=== PATIENT | female | born 2005 | race Caucasian/White ===

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

== ENCOUNTER 2024-01-04 16:49 | Outpatient (CLI) | payer MEDICAID, SELFPAY ==
[2024-01-04 17:26] VITALS: BP 106/55; PULSE 92
[2024-01-04 17:29] VITALS: BMI 28.0
[2024-01-04 17:37] VITALS: RESP 16; TEMP 36.2
--- NOTE | 2024-01-04 18:45 | OB.TRI.NOTE ---
HPI - General HPI Narrative JOHNATHAN NEAL, is a at 38.2 weeks gestation old who presents with contractions that started earlier today. Denies any leaking of fluid or vaginal bleeding. Positive movement. Maternal Data Information AARON Calculator Estimated Delivery Date Method Current WG Current Estimate 01/16/24 Manual 38w 2d [facility] Medical History (Updated 01/04/24 @ 18:54 by Bethany Espinosa CNM) Spontaneous vaginal delivery Home Medications ?Medication ?Instructions ?Recorded ?Last Taken ?Type [id number]-[id number]-Ev-FA 1 mg 1 tab PO DAILY 09/01/21 12/12/23 09:00 History tablet 1 TAB Allergy/AdvReac Type Severity Reaction Status Date / Time No Known Allergies Allergy Verified 01/04/24 17:29 Social History Smoking Status: Never smoker History Elective abortions Hx Para 0 Spontaneous abortions Hx # Term Pregnancies Ectopic pregnancies Hx # Pregnancies Multiple births # of living children ROS Eyes Eyes: Denies blurry vision Cardiovascular Cardiovascular: Reports none; Denies chest pain at rest, chest pain with activity or dizziness Respiratory/Chest Respiratory/Chest: Denies cough or dyspnea Gastrointestinal Gastrointestinal: Reports none and other; Denies diarrhea or vomiting Genitourinary Genitourinary: Denies dysuria Musculoskeletal Musculoskeletal: Reports none Integumentary Integumentary: Reports none; Denies rash Neurologic Neurologic: Denies dizziness, headache(s) or other visual disturbances Psychiatric Psychiatric: Reports none Physical Exam Const alert and no apparent distress General Appearance: cooperative Orientation / Consciousness: awake Exam Limitations: no limitations HEENT normocephalic Eyes General Eye: normal appearance of both eyes Neck full ROM Chest inspection of chest normal Resp normal respiratory effort and normal air movement Effort and Inspection: symmetric chest movement Auscultation: clear to auscultation bilaterally Cardio regular rate GI soft to palpation, non-tender and non-distended Inspection: and other Back/Spine normal ROM Extremity full ROM, normal capillary refill and no calf tenderness Skin no rashes or lesions noted Neuro oriented x3 and CN's II-XII intact bilaterally Psych mental status grossly normal NST FHR Rate Baby A Baseline: 130 Variability:: Moderate Accelerations:: 15 x 15 Decelerations:: None NST Reactive:: Yes FHR Category:: Category I Uterine Activity:: irregular Assessment & Plan (1) 38 weeks gestation of : (2) Uterine contractions: PLAN: Plan NST reactive CE - unchanged after monitoring- 2.5/-3 Patient requesting to be discharged home Follow up in office
== END 2024-01-04 19:05 | disposition home or self-care (01) ==
LOC: WPOUT 17:06 → WP 17:07
PROVIDERS: Referring Provider Advanced Practice Midwife; Visit Provider Advanced Practice Midwife
DX: O47.1 False labor at or after 37 completed weeks of gestation (principal); Z3A.38 38 weeks gestation of pregnancy
CPT/HCPCS: 59025; 59050 ×2; G0378 ×2; 99221

== ENCOUNTER 2024-01-07 22:49 | Inpatient (IN) | payer MEDICAID, SELFPAY ==
[2024-01-07 22:05] VITALS: BP 132/69; PULSE 93; RESP 18; TEMP 37.1; O2SAT 100
[2024-01-07 22:11] VITALS: BMI 24.9
[2024-01-07 22:38] LABS: ROM Internal Control Test YES-OK TO RESULT pt. (Internal QC)
[2024-01-07 22:39] LABS: ROM Patient Test POSITIVE (Negative)
[2024-01-07] MEDS: Lactated Ringers 1,000 ML 50 ML IV (22:40)
[2024-01-07 23:31] LABS: Absolute Lymphocyte Count 2.33 X10^3/uL (0.83-4.51); Absolute Neutrophil Count 7.4 X10^3/uL (2.0-7.7); Basophil# 0.02 X10^3/uL; Basophil% 0.2 % (0-1); Eosinophil# 0.09 X10^3/uL; Eosinophils% 0.8 % (0-5); Hematocrit 30.7 % (37-47); Hemoglobin 9.5 g/dL (12.0-15.0); Lymphocyte # 2.33 X10^3/ul (0.83-4.51); Mean Corp Hgb Conc 30.9 g/dL (32-36); Mean Corpuscular Hgb 24.7 pg (27.0-32.0); Mean Corpuscular Volume 79.7 fL (81-99); Mean Platelet Vol. 11.5 fl (6.2-12.0); Monocyte# 0.73 X10^3/uL; Monocyte% 6.9 % (0-10); NRBC Flagged by Analyzer 0 % (0-5); Neutrophil # 7.37 X10^3/uL (2.7-7.7); Neutrophil % 69.4 % (47-70); Platelet Count 188 K/mm3 (150-450); RBC Distribution Width CV 14.2 % (11.6-14.6); RBC Distribution Width SD 40.7 fl (35.1-43.9); Red Blood Count 3.85 M/mm3 (4.2-5.4); White Blood Count 10.6 K/mm3 (4.4-11.0)
[2024-01-08] VITALS (54 sets, daily range): BP systolic 83–131; BP diastolic 51–81; PULSE 62–101; RESP 14–18; TEMP 36.4–37.4; O2SAT 92–100
[2024-01-08 00:14] LABS: Syphilis Antibodies Non-reactive
[2024-01-08] MEDS: LACTATED RINGERS 500 ML 999 ML IV ×2 (00:55→02:01)
[2024-01-08] MEDS: fentaNYL-bupivacaine (epidural) 100 ML BAG EPIDURAL ×2 (02:01→07:15)
[2024-01-08] MEDS: Oxytocin 15 Units/NS 250ml 15 UNITS/250 ML IV.SOLN 2 UNITS IV (03:28)
[2024-01-08] MEDS: Lactated Ringers 1,000 ML 200 ML IV (05:45)
--- NOTE | 2024-01-08 05:58 | PCM.HP.OB ---
HPI - General General Date of Admission: 01/07/24 HPI Narrative JOHNATHAN NEAL, is a 18 F who presents at 38w6d with SROM. Maternal Data Information AARON Calculator Estimated Delivery Date Method Current WG Current Estimate 01/16/24 Manual 38w 6d PFSH PFS Medical History (Updated 01/08/24 @ 06:02 by Priti Broderick CNM) Anemia Spontaneous vaginal delivery Home Medications ?Medication ?Instructions ?Recorded ?Last Taken ?Type [id number] 1 mg 1 tab PO DAILY 09/01/21 01/06/24 History tablet Allergy/AdvReac Type Severity Reaction Status Date / Time No Known Allergies Allergy Verified 01/07/24 22:10 Social History Smoking Status: Current every day smoker History Elective abortions Hx Para 1 Spontaneous abortions Hx # Term Pregnancies Ectopic pregnancies Hx # Pregnancies Multiple births # of living children NST FHR Rate Baby A Baseline: 125 Variability:: Moderate Accelerations:: 15 x 15 Decelerations:: None FHR Category:: Category I Uterine Activity:: every 2.5 minutes strong ROS Constitutional Constitutional: Reports systems reviewed and no addt'l complaints, except as documented; Denies headache(s) Eyes Eyes: Denies acute decrease in peripheral vision, blurry vision or change in vision ENT HEENT: Reports systems reviewed and no addt'l complaints, except as documented Cardiovascular Cardiovascular: Denies chest pain or dizziness Respiratory/Chest Respiratory/Chest: Denies cough, dyspnea, dyspnea on exertion, shortness of breath at rest or shortness of breath with exertion Gastrointestinal Gastrointestinal: Denies abdominal pain, diarrhea, nausea or vomiting Genitourinary Genitourinary: Denies abdominal discomfort Musculoskeletal Musculoskeletal: Denies limited range of motion Integumentary Integumentary: Reports systems reviewed and no addt'l complaints, except as documented Neurologic Neurologic: Reports systems reviewed and no addt'l complaints, except as documented Psychiatric Psychiatric: Reports systems reviewed and no addt'l complaints, except as documented Endocrine Endocrinology: Reports systems reviewed and no addt'l complaints, except as documented Hematologic/Lymphatic Hematologic/Lymphatic: Reports systems reviewed and no addt'l complaints, except as documented Allergic/Immunologic Allergic/Immunologic: Reports systems reviewed and no addt'l complaints, except as documented Vital Signs Vital Signs Vital Signs: 01/07/24 22:05 01/07/24 22:05 01/07/24 22:05 Temperature Temperature Source Pulse Rate 93 Respiratory Rate Blood Pressure 132/69 H BP Systolic 132 BP Diastolic 69 Pulse Ox 100 01/07/24 22:05 01/07/24 22:05 01/07/24 22:05 Temperature Temperature Source Temporal Pulse Rate Respiratory Rate 18 Blood Pressure BP Systolic BP Diastolic Pulse Ox 100 01/07/24 22:05 01/08/24 00:07 01/08/24 00:07 Temperature 98.7 F Temperature Source Temporal Pulse Rate Respiratory Rate 16 Blood Pressure BP Systolic BP Diastolic Pulse Ox 01/08/24 00:07 01/08/24 00:08 01/08/24 00:08 Temperature 97.9 F Temperature Source Pulse Rate 79 Respiratory Rate Blood Pressure 114/55 L BP Systolic 114 BP Diastolic 55 Pulse Ox 01/08/24 01:27 01/08/24 01:27 01/08/24 01:27 Temperature Temperature Source Temporal Pulse Rate Respiratory Rate 16 Blood Pressure BP Systolic BP Diastolic Pulse Ox 100 01/08/24 01:27 01/08/24 01:28 01/08/24 01:28 Temperature 97.9 F Temperature Source Pulse Rate 79 Respiratory Rate Blood Pressure 131/67 H BP Systolic 131 BP Diastolic 67 Pulse Ox 01/08/24 01:32 01/08/24 01:32 01/08/24 01:37 Temperature Temperature Source Pulse Rate 98 101 H Respiratory Rate Blood Pressure BP Systolic BP Diastolic Pulse Ox 100 01/08/24 01:37 01/08/24 01:42 01/08/24 01:42 Temperature Temperature Source Pulse Rate 93 Respiratory Rate Blood Pressure BP Systolic BP Diastolic Pulse Ox 100 99 01/08/24 01:43 01/08/24 01:43 01/08/24 01:43 Temperature Temperature Source Pulse Rate 91 Respiratory Rate 18 Blood Pressure 124/60 H BP Systolic 124 BP Diastolic 60 Pulse Ox 01/08/24 01:47 01/08/24 01:47 01/08/24 01:49 Temperature Temperature Source Pulse Rate 98 97 Respiratory Rate Blood Pressure BP Systolic BP Diastolic Pulse Ox 100 01/08/24 01:49 01/08/24 01:50 01/08/24 01:50 Temperature Temperature Source Pulse Rate 88 Respiratory Rate Blood Pressure 115/53 L BP Systolic 115 BP Diastolic 53 Pulse Ox 92 01/08/24 01:50 01/08/24 01:52 01/08/24 01:52 Temperature Temperature Source Pulse Rate 84 Respiratory Rate 16 Blood Pressure BP Systolic BP Diastolic Pulse Ox 100 01/08/24 01:54 01/08/24 01:54 01/08/24 01:54 Temperature Temperature Source Pulse Rate 96 Respiratory Rate 16 Blood Pressure 121/60 H BP Systolic 121 BP Diastolic 60 Pulse Ox 01/08/24 01:57 01/08/24 01:57 01/08/24 01:57 Temperature Temperature Source Pulse Rate 85 Respiratory Rate Blood Pressure 118/58 L BP Systolic 118 BP Diastolic 58 Pulse Ox 99 01/08/24 01:57 01/08/24 02:02 01/08/24 02:02 Temperature Temperature Source Pulse Rate 90 Respiratory Rate 16 Blood Pressure 116/63 BP Systolic 116 BP Diastolic 63 Pulse Ox 01/08/24 02:02 01/08/24 02:02 01/08/24 02:07 Temperature Temperature Source Pulse Rate 83 Respiratory Rate 16 Blood Pressure BP Systolic BP Diastolic Pulse Ox 99 01/08/24 02:07 01/08/24 02:08 01/08/24 02:08 Temperature Temperature Source Pulse Rate 86 Respiratory Rate Blood Pressure 119/63 BP Systolic 119 BP Diastolic 63 Pulse Ox 100 01/08/24 02:08 01/08/24 02:12 01/08/24 02:12 Temperature Temperature Source Pulse Rate 91 Respiratory Rate 18 Blood Pressure 124/62 H BP Systolic 124 BP Diastolic 62 Pulse Ox 01/08/24 02:12 01/08/24 02:12 01/08/24 02:17 Temperature Temperature Source Pulse Rate 77 Respiratory Rate 18 Blood Pressure BP Systolic BP Diastolic Pulse Ox 100 01/08/24 02:17 01/08/24 02:22 01/08/24 02:22 Temperature Temperature Source Pulse Rate 88 Respiratory Rate Blood Pressure BP Systolic BP Diastolic Pulse Ox 100 100 01/08/24 02:27 01/08/24 02:27 01/08/24 02:32 Temperature Temperature Source Pulse Rate 98 80 Respiratory Rate Blood Pressure BP Systolic BP Diastolic Pulse Ox 100 01/08/24 02:32 01/08/24 02:37 01/08/24 02:37 Temperature Temperature Source Pulse Rate 79 Respiratory Rate Blood Pressure BP Systolic BP Diastolic Pulse Ox 100 100 01/08/24 02:42 01/08/24 02:42 01/08/24 02:46 Temperature Temperature Source Pulse Rate 74 Respiratory Rate Blood Pressure 104/60 BP Systolic 104 BP Diastolic 60 Pulse Ox 100 01/08/24 02:46 01/08/24 02:46 01/08/24 02:47 Temperature Temperature Source Pulse Rate 75 81 Respiratory Rate 16 Blood Pressure BP Systolic BP Diastolic Pulse Ox 01/08/24 02:47 01/08/24 02:52 01/08/24 02:52 Temperature Temperature Source Pulse Rate 76 Respiratory Rate Blood Pressure BP Systolic BP Diastolic Pulse Ox 99 100 01/08/24 02:57 01/08/24 02:57 01/08/24 03:00 Temperature Temperature Source Pulse Rate 83 Respiratory Rate Blood Pressure 110/64 BP Systolic 110 BP Diastolic 64 Pulse Ox 100 01/08/24 03:00 01/08/24 03:00 01/08/24 03:00 Temperature Temperature Source Temporal Pulse Rate 90 Respiratory Rate 16 Blood Pressure BP Systolic BP Diastolic Pulse Ox 01/08/24 03:00 01/08/24 04:06 01/08/24 04:06 Temperature 98.1 F Temperature Source Pulse Rate 65 Respiratory Rate Blood Pressure 112/57 L BP Systolic 112 BP Diastolic 57 Pulse Ox 01/08/24 04:06 01/08/24 04:06 01/08/24 04:06 Temperature 99.2 F H Temperature Source Temporal Pulse Rate Respiratory Rate 16 Blood Pressure BP Systolic BP Diastolic Pulse Ox 01/08/24 05:30 01/08/24 05:30 01/08/24 05:30 Temperature Temperature Source Temporal Pulse Rate 85 Respiratory Rate Blood Pressure 104/51 L BP Systolic 104 BP Diastolic 51 Pulse Ox 01/08/24 05:30 01/08/24 05:30 01/08/24 05:30 Temperature 98.6 F Temperature Source Pulse Rate Respiratory Rate 16 Blood Pressure BP Systolic BP Diastolic Pulse Ox 99 Weight Weight: 154 lb 6 oz Body Mass Index (BMI) 24.9 Physical Exam Const alert and oriented x3 General Appearance: cooperative Orientation / Consciousness: awake, oriented to person, oriented to place and oriented to time Exam Limitations: no limitations HEENT normocephalic Head and Scalp: normal to inspection, normocephalic and atraumatic Face and Sinus: normal facial exam Eyes General Eye: normal appearance of both eyes Neck full ROM Chest Chest: symmetrical chest wall rise Resp normal respiratory effort and normal air movement Auscultation: clear to auscultation bilaterally Cardio regular rate, regular rhythm, S1 normal heart sound, S2 normal heart sound, no murmurs, no rub, no gallops and no clicks GI normal to inspection, nondistended, normoactive bowel sounds and non-tender appearance of the vagina normal Bladder / Kidney Exam: no CVA tenderness Back/Spine normal ROM Extremity normal to inspection and full ROM Skin no rashes or lesions noted Neuro oriented x3 and moves all extremities Sensorium / Orientation: awake, alert and oriented to person Labs Labs Labs: Blood Type A POSITIVE Antibody Screen NEGATIVE Hct 30.7 % (37-47) L Hgb 9.5 g/dL (12.0-15.0) L Syphilis Total Ab Non-reactive Rubella IgG Antibody Reactive (Nonreactive) Hep Bs Antigen Non-Reactive (Nonreactive) Hepatitis C Antibody Non-Reactive (Nonreactive) Chlamydia DNA (JACQUELINE) Negative (Negative) N.gonorrhoeae DNA (JACQUELINE) Negative (Negative) HIV 1&2 Antibody Non-Reactive (Nonreactive) Glucose 1 Hr 50 gm 87 mg/dL (70-140) Rhogam given: No GBS Negative Assessment & Plan (1) Active labor at term: (2) SROM (spontaneous rupture of membranes): (3) Teen : (4) Anemia affecting : (5) History of labor: (6) History of pyelonephritis: (7) Insufficient care: PLAN: Plan 1) Admit to labor and delivery 2) Routine labs 3) GBS negative 4) Continuous EFM 5) Epidural for pain management 6) collaborative physician and notified of patient status, above assessment, and plan.
--- NOTE | 2024-01-08 08:17 | EX.PCM.OBRPT ---
Maternal Data Information AARON Calculator Estimated Delivery Date Method Current WG Current Estimate 01/16/24 Manual 38w 6d Vaginal Delivery Maternal Presentation Maternal Presentation: Active Labor Operative Information Date of Procedure: 01/08/24 Pre-Operative Diagnosis: 38.6 weeks, SROM, Anemia in , Teen , Insufficient care, Post-Operative Diagnosis: same, live male infant Surgery / Procedure Performed: Spontaneous Vaginal Delivery Type of Anesthesia: Epidural Estimated Blood Loss: 50 Time of Delivery: 08:03 Findings Description of Procedure: Patient progressed to fully dilated upon my arrival head was on the perineum. With good maternal pushing efforts delivered infant head followed by the anterior shoulder and the rest the 's body without delay. The was placed on the mother's chest for immediate skin to skin and infant was vigorous at time of delivery. Delayed cord clamping was performed. Nursery staff was available to attend to the baby. At this time the cord was then clamped and cut. Pitocin was started. At this time first-degree vaginal laceration was identified and repaired using 3-0 Rapide suture without complication. Good hemostasis was appreciated. Placenta was then delivered intact without complication. Fundus was firm. Bladder was then drained approximately 600 cc of clear urine. Presentation: Vertex Amniotic Membrane Rupture Type: Spontaneous Amniotic Fluid Description: Clear Placental Delivery Description: Spontaneous Placenta Disposition: [facility] Cord Vessel Description: 3 Vessels Cord Entanglement: None A Gender: Male (1 minute): 8 (5 minute): 9 Delayed Cord Clamping: Yes Post Vaginal Delivery Medications Given After Delivery: IV Pitocin Episiotomy Description: None Laceration: Vaginal Extension/lac (Repaired with 3-0 Rapide) and 1st degree Complication Complications: None
[2024-01-08] MEDS: Oxytocin 15 Units/NS 250ml 15 UNITS/250 ML IV.SOLN 83 UNITS IV (09:04)
[2024-01-08] MEDS: Ibuprofen 600 MG Tablet PO ×2 (09:25→18:50)
[2024-01-09 00:20] VITALS: BP 108/73; PULSE 75; RESP 16; TEMP 36.9; O2SAT 97
[2024-01-09 04:26] VITALS: BP 110/53; PULSE 79; RESP 16; TEMP 36.8; O2SAT 99
[2024-01-09 08:30] VITALS: BP 106/65; PULSE 75; RESP 16; TEMP 36.8
--- NOTE | 2024-01-09 08:57 | PCM.PN.OB ---
Subjective Subjective Doing well per patient and nursing staff. Ambulating and taking PO without difficulty. Voiding and passing flatus. Pain controlled. Bottlefeeding. Denies headache, visual changes, chest pain, shortness of breath, leg pain or increased bleeding. Lochia normal. Objective Data Objective Data Vital Signs: Vital Signs Temp Pulse Resp BP Pulse Ox O2 Del Method 98.2 F 79 16 110/53 L 99 Room Air 01/09/24 04:26 01/09/24 04:26 01/09/24 04:26 01/09/24 04:26 01/09/24 04:26 01/09/24 04:26 Oxygen Delivery Method Room Air Weight: 154 lb 6 oz Body Mass Index (BMI) 24.9 Intake & Output: Intake and Output for Last 24 Hours 01/07/24 01/08/24 01/09/24 23:59 23:59 23:59 Intake Total 2930.28 / 2930.28 Output Total 1550 / 1550 Balance 1380.28 / 1380.28 Lab / Micro Data 01/07/24 22:40 ROS Constitutional Constitutional: Reports systems reviewed and no addt'l complaints, except as documented; Denies headache(s) Eyes Eyes: Denies acute decrease in peripheral vision, blurry vision or change in vision ENT HEENT: Reports systems reviewed and no addt'l complaints, except as documented Cardiovascular Cardiovascular: Denies chest pain or dizziness Respiratory/Chest Respiratory/Chest: Denies cough, dyspnea, dyspnea on exertion, shortness of breath at rest or shortness of breath with exertion Gastrointestinal Gastrointestinal: Denies abdominal pain, diarrhea, nausea or vomiting Genitourinary Genitourinary: Denies abdominal discomfort Musculoskeletal Musculoskeletal: Denies limited range of motion Integumentary Integumentary: Reports systems reviewed and no addt'l complaints, except as documented Neurologic Neurologic: Reports systems reviewed and no addt'l complaints, except as documented Psychiatric Psychiatric: Reports systems reviewed and no addt'l complaints, except as documented Endocrine Endocrinology: Reports systems reviewed and no addt'l complaints, except as documented Hematologic/Lymphatic Hematologic/Lymphatic: Reports systems reviewed and no addt'l complaints, except as documented Allergic/Immunologic Allergic/Immunologic: Reports systems reviewed and no addt'l complaints, except as documented Physical Exam Const alert and oriented x3 General Appearance: cooperative Orientation / Consciousness: awake, oriented to person, oriented to place and oriented to time Exam Limitations: no limitations HEENT normocephalic Head and Scalp: normal to inspection, normocephalic and atraumatic Face and Sinus: normal facial exam Eyes General Eye: normal appearance of both eyes Neck full ROM Chest Chest: symmetrical chest wall rise Resp normal respiratory effort and normal air movement Auscultation: clear to auscultation bilaterally Cardio regular rate, regular rhythm, S1 normal heart sound, S2 normal heart sound, no murmurs, no rub, no gallops and no clicks GI normal to inspection, nondistended, normoactive bowel sounds and non-tender appearance of the vagina normal Bladder / Kidney Exam: no CVA tenderness Back/Spine normal ROM Extremity normal to inspection and full ROM Skin no rashes or lesions noted Neuro oriented x3 and moves all extremities Sensorium / Orientation: awake, alert and oriented to person Assessment & Plan (1) Vaginal delivery: PLAN: 1) PPD#1 2) Vitals stable 3) Pain controlled 4) D/C home 5) Follow up in 2wk and 6 wk PP
--- NOTE | 2024-01-09 08:59 | PCM.DC.SUM ---
Providers Date of Admission: 01/07/24 Primary Care Physician: Nidia Primary Care Phys Reason For Visit: VAG DELIVERY Diagnosis Discharge Diagnosis (1) Vaginal delivery: Status: Acute Code(s): O80 - Encounter for full-term uncomplicated delivery Plan: 1) PPD#1 2) Vitals stable 3) Pain controlled 4) D/C home 5) Follow up in 2wk and 6 wk PP Medications at Discharge Home Medications svcuuokr-[id number]-Ko-FA 1 mg tablet 1 tab PO DAILY 09/01/21 acetaminophen 500 mg tablet 1,000 mg (2 x 500 mg) PO Q6H PRN PRN Pain 1-10 Or Fever #0 tabs 01/09/24 ferrous sulfate 325 mg (65 mg iron) tablet 325 mg PO BID 30 days #60 tabs 01/09/24 ibuprofen 600 mg tablet 600 mg PO Q6H PRN PRN Pain Score 1-10 #0 tabs 01/09/24 Hospital Course Summary of Care Provided Minutes Spent on Discharge: 15 Weight / BMI Weight Weight: 154 lb 6 oz Body Mass Index (BMI) 24.9 ABG / Lab / Microbiology Data 01/07/24 22:40 Meaningful Use Info Meaningful Use Meaningful Use Diagnoses (Choose all that apply): None applicable Ischemic Stroke Statin Dosing Therapy Reference: STATIN DOSE THERAPY REFERENCE: * Patients > 75 years receive moderate or high dose statin therapy. * Patients 75 years or YOUNGER should receive HIGH intensity statin dose unless contraindicated. You will be required to document reason for non-treatment if statin daily dose does not meet guidelines. HIGH DOSE STATIN THERAPY DAILY Atorvastatin > than or = to 40 mg Rosuvastatin > than or = to 20 mg Amlodipine + Atorvastatin > than or = to 2.5/40 mg Ezetimibe + Simvastatin 10/80 mg Simvastatin 80mg Discharge Plan Admission Admit Date/Time: 01/07/24 22:49 Primary Reason for Your Visit: vaginal delivery Attending Provider: Adrienne South Primary Care Provider: Care Physician,No Primary Discharge Orders/Prescriptions Prescriptions: New ferrous sulfate 325 mg (65 mg iron) tablet 325 mg PO BID 30 Days Qty: 60 0RF acetaminophen 500 mg Tablet 1,000 mg PO Q6H PRN PRN (Reason: Pain 1-10 Or Fever) Qty: 0 0RF ibuprofen 600 mg Tablet 600 mg PO Q6H PRN PRN (Reason: Pain Score 1-10) Qty: 0 0RF No Action 1 mg Tablet 1 tab PO DAILY Referrals / Follow Up: Adrienne South MD [Med Staff - Active Staff] - Care Physician,No Primary [Primary Care Provider] - Disposition Disposition (needs filled in before D/C Order can be placed): Home, Self Care
--- NOTE | 2024-01-09 11:21 | CASEMGMT ---
Social Work Assessment Labor and Delivery Unit Patient Address: [address] [place] [address] [place] [address] Phone number: [phone] Date of Referral: 01/09/24 Time of Referral:? 1004 Referred By: Adrienne Hartman Date of Intervention: 01/09/24?? Time of Intervention:? 1045 Reason for Referral:? depression Sw completed chart review and acknowledges social work consult due to maternal mental health history. Sw presented to bedside and introduced self to mother of baby (HAVEN- Lety) and father of baby (FOB- Eugene Moctezuma). Sw explained reason for sw involvement and completed psychosocial assessment. History obtained from: medical records, MOB and FOB Household composition: Currently residing in the family home is MOB, FODomo, HAVEN's older son (Courtney, 2 y/o) and baby when discharged. Parents deny any issues or concerns with housing at this time. Patient's parent/guardian status:?HAVEN reports that she and FODomo have been together for almost two and a half years. FOB states that they met online. No reports of domestic violence or intimate partner violence. ? Medical History: ?HAVEN is 18, almost 19 year old female who is 2, para 1- now 2 following labor and delivery of . HAVEN presented to hospital on 01/08/24 and delivered baby via vaginal delivery at 38 weeks gestation. HAVEN received routine care during with [facility]. Baby boy, named Luis Escobedo, was born weighing 7lb 8oz with apgars of 8 and 9 at one and five minutes of life, respectfully. Baby will be followed by Dr. Killian for pediatrics. HAVEN reports that she is formula feeding baby. Educational Status:?Both parents completed the 11th grade. Financial Status: FODomo is working outside of the home at [employer]. He states that he is able to take some time off of work now that baby has been born. MOB is unemployed. Supplies:??Parents report that they have obtained all necessary baby supplies for baby, including: car seat, safe sleep space, clothes, diapers, wipes and all feeding supplies. Childcare/Caregiver(s):? MOB will be the primary caregiver to baby along with FOB when he is not working. Transportation:?? HAVEN does not drive, she reports that she relies on FOB when she has doctors appointments. ANEUDY has his license and reliable means of transportation. Programs/Agencies Involved: ???HAVEN is connected to insurance through [employer], SNAP benefits and is going to get connected to WIC. HAVEN also expressed an interest in getting connected to [employer]- she was with her first son as well. Sw to make referral. Children Services/Legal Issues:???Per chart review, oneyda notes that when HAVEN's first baby was born a referral may have been made to Children Services due to several social concerns at that time. On this date MOB reports that they did not follow up with her at that time. No issues or concerns warranting referral to be made at this time. Behavioral Health Issues: ??Mental Health History:?FODomo reports that he has anxiety, is not prescribed medications and is not connected to mental health services or supports. FOB states that he has been exceptionally anxious with baby. FOB reports that this is his first baby and he is nervous to provide care because baby is so fragile. FOB states he is still learning what is and is not normal. FOB states that he knows it will get better as time goes on as baby grows and he becomes more comfortable. FOB states that he has healthy and appropriate coping skills. FOB reports that to help manage his anxiety he prefers to talk through what he is feeling, and states that MOB is always helpful with this. HAVEN states that she has anxiety, is not medicated and is not connected to any mental health services or supports. MOB states that there are times when she feels on edge and makes herself just sit down and take deep breaths until she is more calm. HAVEN denies experiencing any baby blues, depression or anxiety ?? Substance Use History:?Parents deny substance use. MOB admits to nicotine. Education provided on exposing to second hand smoke, hand washing and smoking outside of the home. ? Family History: FODomo states that both of his parents struggled with addiction. FOB states that his father in a car accident and his mother no longer uses. MOB denied substance use and significant family history of mental health. ? Drug Screens: No urine screen observed in chart review. ?? Family/Social Stressors:? Parents deny any issues or concerns at this time. FOB openly talking about his nervousness with baby and just learning things as a new first time dad. Support Systems: Parents report that maternal grandma is their biggest support along with FOB's grandparents. Depression/Shaken Baby/Safe Sleeping:? Sw provided education and literature on signs and symptoms of baby blues and depression and anxiety. Parents express understanding. FOB stated that he believes he would be able to recognize if MOB is struggling with her mental health during this period and believes that he would know how to help and support her. Education provided on shaken baby prevention and ABCs of safe sleep. Parents expressed understanding. ASSESSMENT:? MOB and baby admitted following labor and delivery of . MOB with mental health history, denies any history following the delivery of her first son. MOB and FOB have been together for two years and have talked to each other regarding their mental health history, they were observed to be supportive of one another. laying in crib with fluffly blanket. Education provided regarding safe sleep, having a sleep space free of extra blankets, pillows and stuffed animals. Sw encouraged parents to use sleep/ swaddle sack for sleep. Parents express understanding. MOB has everything that she needs for baby and natural supports in place. PLAN:? MOB and baby to be discharged when medically ready. ?No other services requested or indicated. Silvano Butts, NURSE ADVISOR, PRESSURIZER
== END 2024-01-09 11:50 | disposition home or self-care (01) | DRG 560 ==
LOC: WPOUT 22:53 → WP 22:53
PROVIDERS: Advanced Practice Midwife; Admitting Provider Obstetrics & Gynecology; Visit Provider Obstetrics & Gynecology
DX: O99.02 Anemia complicating childbirth (principal); Z37.0 Single live birth; F17.200 Nicotine dependence, unspecified, uncomplicated; O99.334 Smoking (tobacco) complicating childbirth; O70.0 First degree perineal laceration during delivery; Z3A.38 38 weeks gestation of pregnancy
CPT/HCPCS: 59025; 59050; 84112; 85025; 86780; 86850; 86900; 86901; 99221; 99406; J7120; G0378

== ENCOUNTER 2024-02-18 16:45 | Emergency (ER) | payer MEDICAID, SELFPAY ==
[2024-02-18 16:46] VITALS: BP 126/63; PULSE 74; RESP 15; TEMP 36.6; O2SAT 99; BMI 20.9
--- NOTE | 2024-02-18 17:03 | EDS_ITS ---
HPI HPI - Female History of Present Illness Chief Complaint: Vag Bleeding Informant: patient Pain Pain: Positive for Pelvic Pain Onset: Yesterday Context: Gradual Onset Timing: Intermittent Location: RLQ and Suprapubic Worsened by: - (Nothing) Relieved by: - (Nothing) Bleeding Issue: Positive for Vaginal bleeding Onset: Yesterday Context: Gradual Onset Timing: Continuous Current Severity: Heavy Maximum Severity: Heavy Associated Symptoms Associated Symptoms: Negative for Dysuria, Frequency or Urgency Narrative Narrative: Patient presents with vaginal bleeding that began yesterday. Patient states it became heavier today. Patient states she is saturating a pad every 2 hours. Patient states the bleeding is also saturating her underwear, shorts, and closed. Patient admits to some suprapubic cramping. Patient is 6 weeks . Patient denies any complications with the or delivery. Patient states she felt like she was starting to have her menstrual period but it is heavier than usual. Patient states she follows with [facility] OF INSTRUMENTAL [employer]IC. Blood type is A+. [facility] Medical History Anemia Spontaneous vaginal delivery Home Medications ?Medication ?Instructions ?Recorded ?Last Taken ?Type ferrous sulfate 325 mg (65 mg 325 mg PO BID 30 days #60 tabs 01/09/24 Unknown Rx iron) tablet Allergy/AdvReac Type Severity Reaction Status Date / Time No Known Allergies Allergy Verified 02/18/24 16:48 Surgical History no surgical history no surgical history Social History Smoking Status: Current every day smoker tobacco type: e-cigarettes ROS ROS ED Constitutional Constitutional ED: Denies chills or fever(s) Eyes Eyes: Denies blurry vision or change in vision ENT ENT ED: Reports rhinorrhea; Denies sore throat Cardiovascular Cardiovascular: Denies chest pain or palpitations Respiratory/Chest Respiratory/Chest: Denies cough or dyspnea Gastrointestinal Gastrointestinal: Denies nausea or vomiting Genitourinary Genitourinary ED: Denies dysuria or hematuria Musculoskeletal Musculoskeletal: Denies back pain or neck pain Integumentary Denies abscess or rash Neurologic Neurologic: Denies headache(s) or weakness Allergic/Immunologic Allergic/Immunologic ED: Denies mouth swelling or urticaria EXAM Physical Exam Const Vital Signs: 02/18/24 16:46 02/18/24 17:33 02/18/24 18:45 Temperature 98 F Temperature Source Temporal Pulse Rate 74 83 Pulse Rate [Lying] 82 Pulse Rate [Sitting (for 1 minute prior to obtaining)] 83 Pulse Rate [Standing (for 1 minute prior to obtaining)] 78 Respiratory Rate 15 16 Blood Pressure 126/63 H 116/57 L Blood Pressure [Lying] 111/67 Blood Pressure [Sitting (for 1 minute prior to obtaining)] 112/67 Blood Pressure [Standing (for 1 minute prior to obtaining)] 114/59 L Blood Pressure Mean 84 76 Blood Pressure Mean [Lying] 81 Blood Pressure Mean [Sitting (for 1 minute prior to obtaining)] 82 Blood Pressure Mean [Standing (for 1 minute prior to obtaining)] 77 Pulse Ox 99 99 Oxygen Delivery Method Room Air Room Air Positive well nourished and well developed General Appearance ED: well developed and NAD HEENT Reports moist mucous membranes Eyes PERRL and EOMs intact bilaterally Neck supple and no JVD Resp normal respiratory effort and clear to auscultation bilaterally Cardio regular rate and regular rhythm GI soft to palpation and non-distended Palpation: tender RLQ; Negative for guarding Extremity normal to inspection and full ROM Neuro oriented x3, CN's II-XII intact bilaterally and no sensory deficits noted Sensorium / Orientation: alert Motor Exam: strength 5/5 throughout Psych mental status grossly normal MDM MDM MDM Narrative Medical decision making narrative: Differential diagnosis includes dysmenorrhea, menorrhagia, ectopic , uterine fibroid, and anemia. CBC will be obtained to assess for leukocytosis and anemia. Basic metabolic profile will be obtained to assess for electrolyte abnormality and renal function. PT with INR and PTT will be obtained to assess for coagulopathy. CT scan of the abdomen pelvis will be obtained to assess for pelvic mass and uterine fibroid. Serum hCG will be obtained to assess for preg rakel. Lab Data Attestation: I reviewed the patient's lab results. Lab results narrative: CBC was reviewed. White blood cell count was normal. Hemoglobin was 11.8 and hematocrit was 38.0. Platelets were within normal limits. PT was INR and PTT were reviewed and were essentially within normal limits. Basic metabolic profile was reviewed and was within normal limits. Serum hCG was reviewed and was negative. Urinalysis was reviewed. There are 25-50 red blood cells. There is no evidence of urinary tract infection. Labs: Laboratory Results - last 24 hr 02/18/24 17:37 WBC 7.0 RBC 4.73 Hgb 11.8 L Hct 38.0 MCV 80.3 L MCH 24.9 L MCHC 31.1 L RDW Std Deviation 49.1 H RDW Coeff of Gia 16.8 H Plt Count 187 MPV 10.7 Immature Gran % (Auto) 0.300 Neut % (Auto) 53.4 Lymph % (Auto) 35.8 Andrews % (Auto) 5.8 Eos % (Auto) 4.4 Baso % (Auto) 0.3 Absolute Neuts (auto) 3.7 Absolute Lymphs (auto) 2.51 Nucleated RBC % 0 PT 13.8 INR 1.1 APTT 29.4 Sodium 139 Potassium 3.5 Chloride 109 H Carbon Dioxide 24.0 Anion Gap 6 BUN 11 Creatinine 0.88 Estim Creat Clear Calc 94.93 Est GFR (MDRD) Af Amer 105 Est GFR (MDRD) Non-Af 87 BUN/Creatinine Ratio 12.5 Glucose 88 Calcium 9.7 Serum , Qual NEGATIVE Urine Color Yellow Urine Clarity Clear Urine pH 5.0 Ur Specific [place] 1.020 Urine Protein 15 H Urine Glucose (UA) Normal Urine Ketones Negative Urine Occult Blood 250 H Urine Nitrite Negative Urine Bilirubin Negative Urine Urobilinogen 1 H Ur Leukocyte Esterase 25 H Urine RBC 25-50 SEEN Urine WBC 0-5 SEEN Ur Squamous Epith Cells 0-5 SEEN Urine Bacteria 0 SEEN Urine Mucus 1+ Radiography Diagnostic Testing: Clinical Impression(s) from Imaging Studies Abdomen/Pelvis CT 02/18/24 18:10 IMPRESSION: Within the pelvis the uterus is noted and there are dilated serpiginous vessels around its periphery suggesting pelvic congestion. Additionally there is free pelvic fluid which is likely physiologic along with physiologic ovarian cysts. However, the individual ovaries cannot be accurately evaluated from the serpiginous vessels and the pelvic fluid. Additionally, the appendix could not be visualized. A dedicated pelvic ultrasound may be of benefit for further evaluation of the ovaries free fluid and the serpiginous vessels around the periphery of the uterus. No suspicious solid organ abnormality No free air or suspicious adenopathy Electronically Signed: Carlton Torrez MD at 18:53 EDT , CT scan of the abdomen pelvis was obtained. There is congestion of the uterus. There is free pelvic fluid which is likely physiologic along with physiologic ovarian cyst. There is no suspicious solid organ abnormality. There is no free air or adenopathy noted. This was interpreted by the radiologist was also independently reviewed by myself. Treatment and Re-Evaluation Narrative: Patient was given IV fluids. Patient was feeling better on reevaluation. Case was discussed with Dr. Etienne from DIRECT[employer] OF [employer]STRUMENTAL MUSIC. She recommended having the patient take ibuprofen 600 mg every 6 hours. Patient states that she had not been doing this prior to today. Patient was advised to do this and will follow-up with DIRECTOR OF INSTRUMENTAL MUSIC in 3 to 5 days. Patient understands and is agreeable with the plan. Patient is comfortable with discharge. All questions were answered. Discharge Plan Triage Chief Complaint: Vag Bleeding ED Provider: Ricardo James Dx/Rx/DC Orders Clinical Impression: Abnormal vaginal bleeding, Pelvic pain Instructions: ED Dysfunctional Uterine Bleeding Prescriptions: No Action ferrous sulfate 325 mg (65 mg iron) tablet 325 mg PO BID 30 Days Qty: 60 0RF Primary Care Provider: Care Physician,No Primary Referrals: Tonya Etienne DO [Med Staff - Active Staff] - 3-5 Days Care Physician,No Primary [Primary Care Provider] - Print Language: Wolof Disposition Disposition: Home, Self Care
[2024-02-18] MEDS: 0.9% Normal Saline (1000mL) 1,000 ML 999 ML IV (17:25)
[2024-02-18 17:33] VITALS: BP 111/67; BP 112/67; BP 114/59; PULSE 78; PULSE 82; PULSE 83
[2024-02-18 17:40] LABS: Bacteria 0 SEEN /hpf (None Seen)
[2024-02-18 17:42] LABS: Color, Urine Yellow (Yellow); Glucose, Dipstick Normal (Normal); Ketone-Dipstick Negative (Negative); Leukocyte Esterase-Dipstick 25 /ul (Negative); Nitrite-Dipstick Negative (Negative); Occult Blood-Urine 250 /ul (Negative); Protein-Dipstick 15 mg/dl (Negative); Urine Bilirubin Dipstick Negative (Negative); Urine Clarity Clear (Clear); Urine Urobilinogen 1 mg/dl (Normal)
[2024-02-18 17:46] LABS: Absolute Lymphocyte Count 2.51 X10^3/uL (0.83-4.51); Absolute Neutrophil Count 3.7 X10^3/uL (2.0-7.7); Basophil# 0.02 X10^3/uL; Basophil% 0.3 % (0-1); Eosinophil# 0.31 X10^3/uL; Eosinophils% 4.4 % (0-5); Hemoglobin 11.8 g/dL (12.0-15.0); Lymphocyte # 2.51 X10^3/ul (0.83-4.51); Lymphocyte % 35.8 % (19-41); Mean Corp Hgb Conc 31.1 g/dL (32-36); Mean Corpuscular Hgb 24.9 pg (27.0-32.0); Mean Corpuscular Volume 80.3 fL (81-99); Mean Platelet Vol. 10.7 fl (6.2-12.0); Monocyte# 0.41 X10^3/uL; Monocyte% 5.8 % (0-10); NRBC Flagged by Analyzer 0 % (0-5); Neutrophil # 3.74 X10^3/uL (2.7-7.7); Neutrophil % 53.4 % (47-70); Platelet Count 187 K/mm3 (150-450); RBC Distribution Width CV 16.8 % (11.6-14.6); RBC Distribution Width SD 49.1 fl (35.1-43.9); Red Blood Count 4.73 M/mm3 (4.2-5.4)
[2024-02-18 17:48] LABS: Mucous, Urine 1+ /hpf (<or=2+); Red Blood Cells-Urine 25-50 SEEN /hpf (0-5); Squamous Epithelial Cells - UA 0-5 SEEN /hpf (5-10); White Blood Cells 0-5 SEEN /hpf (0-5)
[2024-02-18 17:50] LABS: Internal QC Validated? YES +Cl - CLEAR BKGD
[2024-02-18 17:51] LABS: Pregnancy, Serum, hCG Quali. NEGATIVE Negative
[2024-02-18 17:54] LABS: Anion Gap 6 (5-15); BUN 11 mg/dL (7-18); BUN/Creat Ratio 12.5 RATIO (10-20); Calcium,Total 9.7 mg/dL (8.5-10.1); Chloride 109 mmol/L (98-107); Creatinine, Serum 0.88 mg/dL (0.55-1.02); EST Glomerular Filtration Rate 87 mL/min (>60); Est Glom Filt Rate - Afr Amer 105 mL/min (>60); Estimated Creatinine Clearance 94.93 ml/min; Glucose 88 mg/dL (74-106); Potassium 3.5 mmol/L (3.5-5.1); Sodium Level 139 mmol/L (136-145)
[2024-02-18 17:56] LABS: International Normalized Ratio 1.1; Prothrombin Time (Protime)PT. 13.8 SECONDS (11.7-14.9)
[2024-02-18 17:57] LABS: Partial Thromboplast Time 29.4 Seconds (24.1-36.2)
--- NOTE | 2024-02-18 18:10 | CT_ITS ---
STUDY: CT ABDOMEN AND PELVIS WITH CONTRAST REASON FOR EXAM: Female, 19 years old. Pelvic pain RADIATION DOSAGE (If Supplied By Facility): CTDIvol = ( 8.36 ) mGy, DLP = ( 504.57 ) mGycm TECHNIQUE: Transaxial images were obtained from the dome of the diaphragm to the symphysis pubis without oral contrast. IV 75mL Isovue-370 was administered. Sagittal and coronal images were reconstructed. Individualized dose optimization techniques were used for this CT. COMPARISON: None. FINDINGS: The visualized lung bases are unremarkable. The visualized portions of the heart are within normal limits. Normal liver. Normal gallbladder and extrahepatic biliary system. Normal spleen. Normal pancreas. Normal bilateral adrenal glands. No obstructive uropathy or suspicious solid renal lesion, there is a simple 2 cm left renal cyst. Normal visualized stomach. Normal small intestine. Normal colon. The appendix is not clearly visualized. Normal abdominal aorta. Normal inferior vena cava. Normal retroperitoneum. Normal urinary bladder. The uterus has dilated serpiginous vessels around its periphery suggestive of pelvic congestion. Additionally there are bilateral ovarian cysts and associated free fluid. It is difficult to accurately distinguish the ovaries from the pelvic fluid and dilated pelvic vessels. A dedicated pelvic ultrasound may be of additional benefit. Pelvic inflammatory disease cannot be excluded. Normal abdominal wall. Normal osseous structures. CT/Abdomen/Pelvis W IV Cont ONLY IMPRESSION: Within the pelvis the uterus is noted and there are dilated serpiginous vessels around its periphery suggesting pelvic congestion. Additionally there is free pelvic fluid which is likely physiologic along with physiologic ovarian cysts. However, the individual ovaries cannot be accurately evaluated from the serpiginous vessels and the pelvic fluid. Additionally, the appendix could not be visualized. A dedicated pelvic ultrasound may be of benefit for further evaluation of the ovaries free fluid and the serpiginous vessels around the periphery of the uterus. No suspicious solid organ abnormality No free air or suspicious adenopathy Electronically Signed: Carlton Torrez MD at 18:53 EDT ,
[2024-02-18 18:45] VITALS: BP 116/57; PULSE 83; RESP 16; O2SAT 99
[2024-02-18 20:00] VITALS: BP 109/67; PULSE 66; RESP 16; TEMP 36.7; O2SAT 100
[2024-02-18 20:12] VITALS: BP 109/67; PULSE 66; RESP 16; TEMP 36.7; O2SAT 100
== END 2024-02-18 20:17 | disposition home or self-care (01) ==
PROVIDERS: Emergency Provider Emergency Medicine; Visit Provider Emergency Medicine
DX: O99.893 Other specified diseases and conditions complicating puerperium (principal); N93.9 Abnormal uterine and vaginal bleeding, unspecified; R10.2 Pelvic and perineal pain; O99.335 Smoking (tobacco) complicating the puerperium; F17.290 Nicotine dependence, other tobacco product, uncomplicated
CPT/HCPCS: 74177; 80048; 81001; 84703; 85025; 85610; 85730; 96360; 99284; J7030; Q9967; A4216

== ENCOUNTER 2024-05-05 20:31 | Emergency (ER) | payer MEDICAID, SELFPAY ==
[2024-05-05 20:31] VITALS: BP 109/59; PULSE 101; RESP 16; TEMP 36.8; O2SAT 98; BMI 21.4
--- NOTE | 2024-05-05 22:12 | EDS_ITS ---
HPI History of Present Illness Chief Complaint: Sore Throat Informant: patient and spouse/S.O. Narrative Narrative: 19-year-old female presenting to the emergency room with sore throat and rhinorrhea. Patient states that yesterday morning she woke up with a scratchy throat. She woke up during last night feeling that her throat was swollen and subsequently developed rhinorrhea. She feels some mild fatigue. She is headed to be seen as she is caring for her 3-month-old who felt warm earlier today but did not have fever. Significant other is not sick at home. No significant cough headache myalgias vomiting or diarrhea. [facility] Medical History Anemia Spontaneous vaginal delivery Home Medications ?Medication ?Instructions ?Recorded ?Last Taken ?Type ferrous sulfate 325 mg (65 mg 325 mg PO BID 30 days #60 tabs 01/09/24 Unknown Rx iron) tablet Allergy/AdvReac Type Severity Reaction Status Date / Time No Known Allergies Allergy Verified 05/05/24 20:33 Social History Smoking Status: Current every day smoker tobacco type: e-cigarettes ROS ROS ED ROS Narrative Generalized fatigue Constitutional Constitutional ED: Denies chills, fever(s) or weight loss Eyes Eyes: Denies change in vision or diplopia ENT ENT ED: Reports rhinorrhea and sore throat; Denies ear pain Cardiovascular Cardiovascular: Denies chest pain, orthopnea, palpitations or racing heartbeat Respiratory/Chest Respiratory/Chest: Denies cough, dyspnea or orthopnea Gastrointestinal Gastrointestinal: Denies abdominal pain, diarrhea, nausea or vomiting Genitourinary Genitourinary ED: Denies dysuria, hematuria or urinary frequency Musculoskeletal Musculoskeletal: Denies arthralgias or myalgias Integumentary Denies abscess or rash Neurologic Neurologic: Denies headache(s) or weakness Psychiatric Psychiatric: Denies anxiety, depression, suicidal ideation or suicidal thoughts Endocrine Endocrinology: Denies polydipsia, polyphagia or polyuria Allergic/Immunologic Allergic/Immunologic ED: Denies mouth swelling, tongue swelling or urticaria EXAM Physical Exam Const Vital Signs: 05/05/24 20:31 Temperature 98.2 F Temperature Source Temporal Pulse Rate 101 H Respiratory Rate 16 Blood Pressure 109/59 L Blood Pressure Mean 75 Pulse Ox 98 Oxygen Delivery Method Room Air Positive well nourished and well developed General Appearance ED: well developed HEENT Reports normocephalic, head/scalp atraumatic and moist mucous membranes Eyes PERRL and EOMs intact bilaterally Neck no lymphadenopathy, supple and no JVD Resp normal respiratory effort and clear to auscultation bilaterally Cardio regular rate, regular rhythm and no murmurs GI normal to inspection, nondistended, normoactive bowel sounds and non-tender Palpation: soft Back/Spine no CVA tenderness and normal ROM Extremity normal to inspection General Extremety ED: Negative for edema General Extremity: Negative for edema Neuro oriented x3 and CN's II-XII intact bilaterally Sensorium / Orientation: alert Motor Exam: strength 5/5 throughout Psych mental status grossly normal Mood & Affect: Negative for depressed or tearful Skin no rashes or lesions noted and no wounds MDM MDM MDM Narrative Medical decision making narrative: Differential diagnosis includes but not limited to strep throat viral syndrome bacterial pharyngitis pneumonia bronchitis Rapid strep, RSV influenza and COVID-19 swabs were obtained. Patient is COVID- 19 positive. She has very mild symptoms. Would recommend supportive care Tylenol and Motrin as needed for fever and bodyaches. Fluid hydration. Return if worsening or concerns History & Record Review Discussion w/independent historian: Patient and Significant other Discharge Plan Triage Chief Complaint: Sore Throat ED Provider: Fabricio Castillo Dx/Rx/DC Orders Clinical Impression: COVID-19, Acute sore throat Instructions: ED Viral Syndrome (Adult) Prescriptions: No Action ferrous sulfate 325 mg (65 mg iron) tablet 325 mg PO BID 30 Days Qty: 60 0RF Primary Care Provider: Care Physician,No Primary Referrals: Care Physician,No Primary [Primary Care Provider] - Print Language: Citizen Of [place] Disposition Disposition: Home, Self Care
== END 2024-05-05 23:59 | disposition home or self-care (01) ==
PROVIDERS: Emergency Provider Emergency Medicine; Visit Provider Emergency Medicine
DX: U07.1 COVID-19 (principal); F17.290 Nicotine dependence, other tobacco product, uncomplicated
CPT/HCPCS: 87631; 87651; 99282

== ENCOUNTER 2024-08-28 21:50 | Emergency (ER) | payer MEDICAID, SELFPAY ==
[2024-08-28 21:51] VITALS: BP 117/63; PULSE 82; RESP 14; TEMP 36.6; O2SAT 98; BMI 21.2
--- NOTE | 2024-08-28 22:26 | EX.ED.DYSGE1 ---
HPI History of Present Illness Chief Complaint: Dental Informant: patient and spouse/S.O. Narrative Narrative: Patient is a 19-year-old female with no significant past medical history. She states that she has had a lesion along her left gumline for the last 6 months to a year. She states it will swell intermittently. She states that she went to an urgent care for and they told her it was nothing to worry about but recommended she see a dentist. Patient states no one in [facility] will take her dental insurance and therefore she has not seen a dentist yet. She states that today the area seemed more swollen and painful than previously and with concern for infection comes in for evaluation [facility] Medical History Anemia Spontaneous vaginal delivery Home Medications ?Medication ?Instructions ?Recorded ?Last Taken ?Type ferrous sulfate 325 mg (65 mg 325 mg PO BID 30 days #60 tabs 01/09/24 Unknown Rx iron) tablet amoxicillin 400 mg-potassium 10 ml PO BID 7 days #140 mL 08/28/24 Unknown Rx clavulanate 57 mg/5 mL oral suspension Allergy/AdvReac Type Severity Reaction Status Date / Time No Known Allergies Allergy Verified 05/05/24 20:33 Social History Smoking Status: Current every day smoker tobacco type: e-cigarettes ROS ROS ED Constitutional Constitutional ED: Denies chills or fever(s) ENT ENT ED: Reports other Details: Positive dental mass/lesion ; Denies sore throat Cardiovascular Cardiovascular: Denies chest pain Respiratory/Chest Respiratory/Chest: Denies cough or dyspnea Gastrointestinal Gastrointestinal: Denies abdominal pain, diarrhea, nausea or vomiting Genitourinary Genitourinary ED: Denies dysuria Musculoskeletal Musculoskeletal: Denies myalgias Integumentary Denies rash Neurologic Neurologic: Denies headache(s) Hematologic/Lymphatic Hematologic/Lymphatic: Denies easy bleeding or easy bruising Allergic/Immunologic Allergic/Immunologic ED: Denies mouth swelling or tongue swelling EXAM Physical Exam Const Vital Signs: 08/28/24 21:51 Temperature 98 F Temperature Source Temporal Pulse Rate 82 Respiratory Rate 14 Blood Pressure 117/63 Blood Pressure Mean 81 Pulse Ox 98 Oxygen Delivery Method Room Air Positive well nourished and well developed General Appearance ED: well developed; Negative for pallor HEENT Reports moist mucous membranes HEENT Narrative: No tongue or lip swelling no airway edema or compromise No signs of infection noted in the posterior pharynx Along the lower gumline near the 24th tooth there is a small flap of gum tissue extending away from the gingiva that is erythematous and edematous. No obvious pustule changes to suggest abscess. No signs of ANUG Eyes PERRL and EOMs intact bilaterally Neck supple Neck Narrative: No brawny edema in the submental space to suggest Galdino angina Resp normal respiratory effort and clear to auscultation bilaterally Cardio regular rate and regular rhythm Extremity normal to inspection Neuro oriented x3, CN's II-XII intact bilaterally and no sensory deficits noted Sensorium / Orientation: alert Motor Exam: strength 5/5 throughout Psych mental status grossly normal Skin no rashes or lesions noted and no wounds General Skin Exam: Negative for jaundice or pallor MDM MDM MDM Narrative Medical decision making narrative: Patient arrived to the ER with stable vitals. She reported dental lesion that had been there for multiple months. Differential diagnosis is for dental caries versus dental abscess versus ANUG versus Galdino angina. By physical exam she does not have brawny edema to suggest Galdino angina and there are no signs of ANUG. There is no obvious abscess formation noted either but there does seem to be a small skin flap or lesion off the lower gumline. There is no obvious signs of infection at this time but patient reports it was swollen earlier today more painful and did drain fluid. Therefore there is concern that it is secondarily infected but does not appear as severe based on his recent drainage. Without systemic findings of infection I do not feel there is need for workup but she be placed on a round of antibiotics for potential secondary infection and can follow-up with her dentist for further evaluation History & Record Review Discussion w/independent historian: Patient Discharge Plan Triage Chief Complaint: Dental ED Provider: Tab Noel Dx/Rx/DC Orders Clinical Impression: Gum lesion Instructions: ED Dental Pain Prescriptions: New amoxicillin-pot clavulanate 400-57 mg/5 mL suspension for reconstitution 10 ml PO BID 7 Days Qty: 140 0RF No Action ferrous sulfate 325 mg (65 mg iron) tablet 325 mg PO BID 30 Days Qty: 60 0RF Primary Care Provider: Care Physician,No Primary Referrals: Care Physician,No Primary [Primary Care Provider] - Activity Restrictions/Additional Instructions: Please take the antibiotic as directed for potential secondary infection. Follow-up with your dentist for repeat evaluation and return to the ER should you have any further concerns Print Language: Tajik Disposition Disposition: Home, Self Care
== END 2024-08-28 22:35 | disposition home or self-care (01) ==
LOC: ED 22:32
PROVIDERS: Emergency Provider Emergency Medicine; Visit Provider Emergency Medicine
DX: K13.70 Unspecified lesions of oral mucosa (principal); F17.290 Nicotine dependence, other tobacco product, uncomplicated
CPT/HCPCS: 99282

== ENCOUNTER 2024-10-20 16:46 | Emergency (ER) | payer MEDICAID, SELFPAY ==
[2024-10-20 16:46] VITALS: BP 120/69; PULSE 66; RESP 16; TEMP 36.6; O2SAT 99; BMI 20.6
--- NOTE | 2024-10-20 16:58 | ED.VIS.DENTA ---
HPI History of Present Illness Chief Complaint: Dental Informant: patient Onset/Context/Timing Onset: Today Context: Gradual Onset Timing: Continuous Quality: Tightness Location: Left lower molars Worsened by: Talking Relieved by: - (Nothing) Associated Symptoms Assocated Symptom - Dental: Negative for fever, jaw swelling, face swelling, cold sensitivity or hot sensitivity Narrative Narrative: Patient presents with left lower dental pain that began today. Patient states it came on gradually. Patient describes it as tightness in her left lower molar area. Patient states it is worse with talking and moving her jaw. Patient states nothing seems to help with it. Patient denies any fevers or chills. Patient states that a piece of her filling fell off and she feels a bump around her tooth. Patient denies any jaw or facial swelling. Patient denies any hot or cold sensitivity. [facility] Medical History Anemia Spontaneous vaginal delivery Home Medications ?Medication ?Instructions ?Recorded ?Last Taken ?Type ferrous sulfate 325 mg (65 mg 325 mg PO BID 30 days #60 tabs 01/09/24 Unknown Rx iron) tablet amoxicillin 400 mg-potassium 10 ml PO BID 7 days #140 mL 08/28/24 Unknown Rx clavulanate 57 mg/5 mL oral suspension amoxicillin 250 mg/5 mL oral 500 mg (10 mL) PO TID 10 days #300 10/20/24 Unknown Rx suspension mL Allergy/AdvReac Type Severity Reaction Status Date / Time No Known Allergies Allergy Verified 10/20/24 16:48 Surgical History no surgical history no surgical history Social History Smoking Status: Current every day smoker tobacco type: e-cigarettes ROS ROS ED Constitutional Constitutional ED: Denies chills or fever(s) Eyes Eyes: Denies blurry vision or change in vision ENT ENT ED: Denies rhinorrhea or sore throat Cardiovascular Cardiovascular: Denies chest pain or palpitations Respiratory/Chest Respiratory/Chest: Denies cough or dyspnea Gastrointestinal Gastrointestinal: Denies nausea or vomiting Genitourinary Genitourinary ED: Denies dysuria or hematuria Musculoskeletal Musculoskeletal: Denies back pain or neck pain Integumentary Denies abscess or rash Neurologic Neurologic: Denies headache(s) or weakness Allergic/Immunologic Allergic/Immunologic ED: Denies mouth swelling or urticaria EXAM Physical Exam Const Vital Signs: 10/20/24 16:46 Temperature 98 F Temperature Source Oral Pulse Rate 66 Respiratory Rate 16 Blood Pressure 120/69 Blood Pressure Mean 86 Pulse Ox 99 Oxygen Delivery Method Room Air Positive well nourished and well developed General Appearance ED: well developed and NAD HEENT Mouth ED: Yes oral and palatal mucosa normal, Yes lips normal and Yes tongue normal Mouth: oral and palatal mucosa normal, lips normal and tongue normal Teeth and Gingiva: caries and gingiva abnormal Positive for gingival edema Throat: posterior oropharynx normal Neck supple and no JVD General: normal visual inspection; Negative for anterior neck swelling, tenderness or submandibular swelling Lymph Lymphatic: no lymphadenopathy noted Neuro oriented x3, CN's II-XII intact bilaterally, moves all extremities, no focal motor deficits and no sensory deficits noted Sensorium / Orientation: alert Motor Exam: strength 5/5 throughout Psych mental status grossly normal MDM MDM MDM Narrative Medical decision making narrative: Nicotine cessation was discussed. Patient was advised that this is most likely infected dental caries. Patient was given a dose of amoxicillin here. Patient was given a prescription for amoxicillin. Patient was instructed to take Tylenol or ibuprofen as needed for pain. Patient was instructed to follow-up with her dentist in 5 to 7 days. Patient understood and was agreeable with the plan. All questions were answered. Discharge Plan Triage Chief Complaint: Dental ED Provider: Ricardo James Dx/Rx/DC Orders Clinical Impression: Infected dental caries, Nicotine vapor product user Instructions: ED Dental Pain, ED Dental Cavity Prescriptions: New amoxicillin 250 mg/5 mL suspension for reconstitution 500 mg PO TID 10 Days Qty: 300 0RF No Action ferrous sulfate 325 mg (65 mg iron) tablet 325 mg PO BID 30 Days Qty: 60 0RF amoxicillin-pot clavulanate 400-57 mg/5 mL suspension for reconstitution 10 ml PO BID 7 Days Qty: 140 0RF Primary Care Provider: Care Physician,No Primary Referrals: Care Physician,No Primary [Primary Care Provider] - Dentist,Your [STAFF PHYSICIAN] - 3-5 Days Print Language: French Disposition Disposition: Home, Self Care
[2024-10-20] MEDS: Amoxicillin 200MG/5 ML Susp PO.SYRINGE 500 MG PO (17:19)
== END 2024-10-20 17:37 | disposition home or self-care (01) ==
PROVIDERS: Emergency Provider Emergency Medicine; Visit Provider Emergency Medicine
DX: K02.9 Dental caries, unspecified (principal); F17.290 Nicotine dependence, other tobacco product, uncomplicated
CPT/HCPCS: 99282

== ENCOUNTER 2024-11-23 18:14 | Emergency (ER) | payer MEDICAID, SELFPAY ==
[2024-11-23 18:15] VITALS: BP 127/88; PULSE 96; RESP 13; TEMP 36.2; O2SAT 100
--- NOTE | 2024-11-23 18:58 | ED.VIS.DENTA ---
HPI <HOWIE Machado - Last Filed: 11/23/24 19:44> History of Present Illness Chief Complaint: Dental Narrative Narrative: Patient presenting today with concerns for swelling to the left side of her face that started while she was driving from [place] to [place]. She became concerned that she could be developing another dental infection and decided to come in for evaluation. She reports that now that she is here the swelling has subsided and she is currently asymptomatic. She denies having any dental pain. She has had no fevers or chills. She is eating without difficulty. She reports that a few weeks ago she was treated for a dental infection with amoxicillin, at that time she was having dental pain and swelling and reports that her symptoms improved with the antibiotics. She does have a dentist appointment scheduled for next month. [facility] <HOWIE Machado - Last Filed: 11/23/24 19:44> [facility] Medical History Anemia Spontaneous vaginal delivery Home Medications ?Medication ?Instructions ?Recorded ?Last Taken ?Type ferrous sulfate 325 mg (65 mg 325 mg PO BID 30 days #60 tabs 01/09/24 Unknown Rx iron) tablet amoxicillin 400 mg-potassium 10 ml PO BID 7 days #140 mL 08/28/24 Unknown Rx clavulanate 57 mg/5 mL oral suspension amoxicillin 250 mg/5 mL oral 500 mg (10 mL) PO TID 10 days #300 10/20/24 Unknown Rx suspension mL Allergy/AdvReac Type Severity Reaction Status Date / Time No Known Allergies Allergy Verified 11/23/24 18:17 Social History Smoking Status: Current every day smoker tobacco type: e-cigarettes ROS <HOWIE Machado - Last Filed: 11/23/24 19:44> ROS ED Constitutional Constitutional ED: Denies chills or fever(s) Cardiovascular Cardiovascular: Denies chest pain Respiratory/Chest Respiratory/Chest: Denies dyspnea Gastrointestinal Gastrointestinal: Denies abdominal pain, nausea or vomiting Musculoskeletal Musculoskeletal: Denies arthralgias or myalgias Integumentary Denies rash Neurologic Neurologic: Denies weakness EXAM <HOWIE Machado - Last Filed: 11/23/24 19:44> Physical Exam Const Vital Signs: 11/23/24 18:15 11/23/24 19:07 Temperature 97.2 F L 97.2 F L Temperature Source Temporal Pulse Rate 96 87 Respiratory Rate 13 16 Blood Pressure 127/88 H 133/70 H Blood Pressure Mean 101 91 Pulse Ox 100 99 Oxygen Delivery Method Room Air Positive well nourished, well developed and no apparent distress General Appearance ED: well developed HEENT Reports normocephalic and head/scalp atraumatic HEENT Narrative: No sublingual or submandibular swelling, no trismus, no drooling, tolerating secretions. No signs of Galdino's angina. No dental abscess. Mouth ED: Yes moist mucous membranes normal Eyes PERRL and EOMs intact bilaterally Neck full ROM, no lymphadenopathy and supple Chest Wall inspection of chest normal Resp normal respiratory effort and clear to auscultation bilaterally Cardio regular rate and regular rhythm Back/Spine normal ROM and normal to inspection Extremity normal to inspection and full ROM Neuro oriented x3, moves all extremities, no focal motor deficits and no sensory deficits noted Sensorium / Orientation: awake and alert Psych mental status grossly normal and thought process normal Skin no rashes or lesions noted and no wounds <Dr. Enmanuel Perera, - Last Filed: 11/23/24 20:11> Physical Exam Const Vital Signs: 11/23/24 18:15 11/23/24 19:07 Temperature 97.2 F L 97.2 F L Temperature Source Temporal Pulse Rate 96 87 Respiratory Rate 13 16 Blood Pressure 127/88 H 133/70 H Blood Pressure Mean 101 91 Pulse Ox 100 99 Oxygen Delivery Method Room Air [facility] <HOWIE Machado - Last Filed: 11/23/24 19:44> [facility] Narrative Medical decision making narrative: Patient presenting with concerns for subjective left-sided facial swelling that started while she was driving home from [place]. She reports that now she is here her symptoms have resolved. She has no submental or sublingual swelling, no facial cellulitis, no dental pain, no signs of Galdino's angina, no dental abscess. She is otherwise well-appearing and in no acute distress. Given her symptoms have subsided, I do not feel that any further workup is indicated. Recommended she follow-up with her dentist and patient discharged home in stable condition. <Dr. Enmanuel Perera DO - Last Filed: 11/23/24 20:11> [facility] MDM Narrative Medical decision making narrative: Patient presenting with concerns for subjective left-sided facial swelling that started while she was driving home from [place]. She reports that now she is here her symptoms have resolved. She has no submental or sublingual swelling, no facial cellulitis, no dental pain, no signs of Galdino's angina, no dental abscess. She is otherwise well-appearing and in no acute distress. Given her symptoms have subsided, I do not feel that any further workup is indicated. Recommended she follow-up with her dentist and patient discharged home in stable condition. Supervisory Physician Note Patient was seen and examined with the Advanced Practice Provider. Nursing notes and vital signs have been reviewed. Pertinent old records have been reviewed. I agree with the essential elements of the SHARONA's history, physical exam, assessment, and plan. The differential diagnosis and management options were discussed with the SHARONA. I participated in determining and agree with the management, procedures, final impression and disposition as documented. See changes noted by me. Please see addendum or separate note for any additional details. Impression: 1. General medical concern, resolved subjective left-sided facial swelling 2. History of dental infection Discharge Plan Triage Chief Complaint: Dental ED Midlevel Provider: Penelope Enamorado ED Provider: Enmanuel Perera Dx/Rx/DC Orders Clinical Impression: Adult general medical exam, Dental caries Instructions: ED Dental Cavity Prescriptions: No Action amoxicillin 250 mg/5 mL suspension for reconstitution 500 mg PO TID 10 Days Qty: 300 0RF ferrous sulfate 325 mg (65 mg iron) tablet 325 mg PO BID 30 Days Qty: 60 0RF amoxicillin-pot clavulanate 400-57 mg/5 mL suspension for reconstitution 10 ml PO BID 7 Days Qty: 140 0RF Primary Care Provider: Care Physician,No Primary Referrals: Care Physician,No Primary [Primary Care Provider] - Activity Restrictions/Additional Instructions: Follow-up with a dentist, return for any other concerns. Print Language: Italian Disposition Disposition: Home, Self Care Discharge Date/Time: 11/23/24 19:14
[2024-11-23 19:07] VITALS: BP 133/70; PULSE 87; RESP 16; TEMP 36.2; O2SAT 99
== END 2024-11-23 19:14 | disposition home or self-care (01) ==
PROVIDERS: Emergency Provider Surgery; Visit Provider Surgery
DX: K02.9 Dental caries, unspecified (principal); F17.290 Nicotine dependence, other tobacco product, uncomplicated
CPT/HCPCS: 99282